=== PATIENT | female | born 1975 | race Caucasian/White ===

== ENCOUNTER 2020-06-02 08:46 | Emergency (ER) | payer SELFPAY | END 2020-06-02 09:24 | disposition home or self-care (01) | LOC: NAV ERS 08:46 | DX: M79.652 Pain in left thigh (principal); Z87.891 Personal history of nicotine dependence; Z79.82 Long term (current) use of aspirin; Z79.899 Other long term (current) drug therapy | CPT/HCPCS: 99283 ==

== ENCOUNTER 2021-01-12 19:57 | Emergency (ER) | payer SELFPAY ==
[2021-01-13 18:41] LABS: SARS-CoV-2 PCR by NAA Not Detected (NotDetected)
== END 2021-01-12 20:51 | disposition home or self-care (01) ==
LOC: NAV ERS 19:57
DX: B34.9 Viral infection, unspecified (principal); Z87.891 Personal history of nicotine dependence; Z20.822 Contact with and (suspected) exposure to COVID-19; Z79.82 Long term (current) use of aspirin
CPT/HCPCS: 87804; 99283; U0003; U0005

== ENCOUNTER 2021-07-07 08:20 | Emergency (ER) | payer SELFPAY ==
[2021-07-07] MEDS ORDERED: Ketorolac Tromethamine 30 MG/ML VIAL ONE (08:43)
[2021-07-07] MEDS ORDERED: traMADol HCl 50 MG TAB ONE (08:44)
[2021-07-07] MEDS ORDERED: Cyclobenzaprine 10 MG TAB ONE (08:45)
== END 2021-07-07 09:00 | disposition home or self-care (01) ==
LOC: NAV ERS 08:20
DX: M54.12 Radiculopathy, cervical region (principal); G89.29 Other chronic pain; Z87.891 Personal history of nicotine dependence; Z79.82 Long term (current) use of aspirin
CPT/HCPCS: 96372; 99283; J1885